=== PATIENT | female | born 1950 | race Caucasian/White ===

== ENCOUNTER 2020-12-11 08:01 | Outpatient (CLI) | payer MEDICARE, OTHER, SELFPAY ==
[2020-12-11 09:25] LABS: INR 0.9; Prothrombin Time 12.7 Seconds (11.1-14.7)
[2020-12-11 09:26] LABS: Partial Thromboplastin Time 29.2 SECONDS (22.3-36.8)
[2020-12-11 09:28] LABS: Anion Gap 6 mmol/L (8-16); Blood Urea Nitrogen 12 mg/dL (7-17); Calcium 9.6 mg/dL (8.4-10.2); Carbon Dioxide 30 mmol/L (22-30); Chloride 105 mmol/L (98-107); Estimated Glomerular Filt Rate > 60; Glucose 113 mg/dL (65-105); Potassium 3.9 mmol/L (3.4-5.0); Sodium 141 mmol/L (137-145)
== END 2020-12-11 08:02 | disposition home or self-care (01) ==
PROVIDERS: Anesthesiology; Urology; PCP Physician Assistant; Visit Provider Urology
DX: Z01.812 Encounter for preprocedural laboratory examination (principal); N20.0 Calculus of kidney; E11.9 Type 2 diabetes mellitus without complications
CPT/HCPCS: 36415; 80048; 85610; 85730; 87086

== ENCOUNTER → 2020-12-17 02:28 | Outpatient (CLI) | payer MEDICARE, OTHER, SELFPAY ==
[2020-12-17 22:46] LABS: SARS-CoV-2 RNA PCR Negative
== END ==
PROVIDERS: PCP Physician Assistant; Visit Provider Urology
DX: Z01.812 Encounter for preprocedural laboratory examination (principal); Z20.822 Contact with and (suspected) exposure to COVID-19
CPT/HCPCS: C9803; U0003; U0005

== ENCOUNTER 2020-12-20 01:34 | Day surgery (SDC) | payer MEDICARE, OTHER, SELFPAY ==
[2020-12-09 15:03] VITALS: BMI 24.4
--- NOTE | 2020-12-13 07:18 | P.HP_ITS ---
History of Present Illness History of Present Illness Consent: Risks, benefits, and alternatives have been discussed and questions answered. Patient agrees to proceed with procedure. Chief complaint: Right Renal Stones Narrative: Brad Charles is a 70 year old male with a remote history of urolithiasis who was referred by the emergency room at [facility] in July 2020. Imaging demonstrated a 14 mm right renal pelvic stone. We originally set to do lithotripsy around that time but he had to cancel due to family issues. He is aware of alternative therapeutic options including percutaneous nephrolithotomy and endoscopic approach to this stone. He is where the risk of ESWL including, but not limited to, injury to his kidney, perinephric bleeding, failure to completely treat the stone. Review of Systems Cardiovascular: Cardiovascular: Denies chest pain, Denies lightheadedness, Denies palpitations and Denies dyspnea Respiratory: Respiratory: Denies dyspnea Gastrointestinal: Gastrointestinal: Denies diarrhea, Denies nausea and Denies vomiting Genitourinary: Genitourinary: Denies hematuria and Denies dysuria Endocrine: Endocrine: Denies palpitations PMFSH Social History Social History Smoking status: Never smoker Second hand tobacco smoke exposure: No Alcohol intake: current Drinks per week: 2 Substance use: never Substance use type: does not use Spiritual care concerns: No Meds Home Medications and Allergies Home Medications Medication Instructions Recorded Confirmed Type aspirin [Aspirin Low Dose] 81 mg PO QAM 12/09/20 12/09/20 History atorvastatin 40 mg HS 12/09/20 12/09/20 History clopidogrel 75 mg DAILY 12/09/20 12/09/20 History dicyclomine 10 mg PRN PRN 12/09/20 12/09/20 History glimepiride 2 mg BID 12/09/20 12/09/20 History hydrocodone-acetaminophen 1 tablet PRN PRN 12/09/20 12/09/20 History isosorbide mononitrate 30 mg PO QAM 12/09/20 12/09/20 History metformin 1,000 mg QAM 12/09/20 12/09/20 History metoprolol tartrate 25 mg BID 12/09/20 12/09/20 History paroxetine HCl 10 mg PO EVERY OTHER DAY 12/09/20 12/09/20 History Allergies Allergy/AdvReac Type Severity Reaction Status Date / Time No Known Allergies Allergy Verified 12/09/20 14:56 Exam Const: General: no acute distress Resp: Effort & Inspection: normal respiratory effort GI: Inspection: non-distended GI Palp: No abdominal tenderness and No Guarding due to palpation present (GI) Auscultation: normal bowel sounds Assessment and Plan Assessment and plan (1) Right kidney stone: Code(s): N20.0 - Calculus of kidney Status: Acute Assessment and Plan: * cystoscopy with right stent placement, right ESWL
[2020-12-20] VITALS (8 sets, daily range): BP systolic 92–145; BP diastolic 56–89; PULSE 58–80; RESP 10–20; TEMP 36–36.3; O2SAT 99–100
--- NOTE | ~2020-12-20 | XR_ITS ---
EXAMINATION: XR abdomen/kub 1V INDICATION: Nephrolithiasis TECHNIQUE: Supine views of the abdomen were obtained on 2 radiographs. COMPARISON: None FINDINGS: A 1.6 cm stone projects in the right kidney. Small stones of the left kidney measure up to 3 mm. Vascular calcifications are noted in the pelvis. The bowel gas pattern is normal. Surgical clip s in the right upper quadrant are likely from prior cholecystectomy. There is mild osteoarthritis of the hips. IMPRESSION: 1. 1.6 cm right kidney stone. 2. Left nephrolithiasis. Reviewed, dictated and finalized at location A. [employer]
--- NOTE | 2020-12-20 06:31 | WPDHPUPDATE1 ---
History and Physical Update Update Date/Time: 12/20/20 06:31 History and Physical has been reviewed, including an updated exam of the patient. There are NO changes in the patient's condition. Risks, benefits, and alternatives have been discussed and questions answered. Patient agrees to proceed with procedure.
[2020-12-20] MEDS: LACTATED RINGERS 1,000 ML 30 ML IV CONT (06:45)
[2020-12-20 06:52] LABS: Glucose Point of Care 104 (65-105)
--- NOTE | 2020-12-20 07:13 | WPDANESEPPF ---
Anes - Initial Pre Proc Eval Procedure: Operation Date: 12/20/20 07:30 Proposed Procedures p Right Renal Extracorporeal Shock Wave Lithotripsy - Mic Menon MD s Cystoscopy With Right Stent Placement - Mic Menon MD Date/Time: 12/20/20 07:13 Surgeon: Mic Menon MD Pre Op Diagnosis: Right Renal Stones Patient Data Age: 70 Gender: F Height: 5 ft 10 in Weight: 74.9 kg Last Vital Signs Temp 36.0 C L 12/20/20 06:21 Pulse 58 L 12/20/20 06:21 Resp 20 12/20/20 06:21 BP 126/81 12/20/20 06:21 Pulse Ox 99 12/20/20 06:21 Allergies Allergy/AdvReac Type Severity Reaction Status Date / Time No Known Allergies Allergy Verified 12/20/20 07:03 Home Medications Medication Instructions Recorded Confirmed Type aspirin [Aspirin Low Dose] 81 mg PO QAM 12/09/20 12/20/20 History atorvastatin 40 mg HS 12/09/20 12/20/20 History clopidogrel 75 mg DAILY 12/09/20 12/20/20 History dicyclomine 10 mg PRN PRN 12/09/20 12/20/20 History glimepiride 2 mg BID 12/09/20 12/20/20 History hydrocodone-acetaminophen 1 tablet PRN PRN 12/09/20 12/20/20 History isosorbide mononitrate 30 mg PO QAM 12/09/20 12/20/20 History metformin 1,000 mg QAM 12/09/20 12/20/20 History metoprolol tartrate 25 mg BID 12/09/20 12/20/20 History paroxetine HCl 10 mg PO EVERY OTHER DAY 12/09/20 12/20/20 History Laboratory Tests 12/20/20 06:47 POC Capillary Glucose 104 mg/dl mg/dl (65-105) Patient hx anesthesia problems: none Family hx anesthesia problems: none PMFSH Past Medical History Medical History CAD (coronary artery disease) Diabetes Hyperlipidemia Hypertension Surgical History Surgical History Hx of CABG Stented coronary artery Social History Social History Smoking status: Never smoker Second hand tobacco smoke exposure: No Alcohol intake: current Drinks per week: 2 Substance use: never Substance use type: does not use Living arrangements: with family Spiritual care concerns: No Anes - Eval Final PreProcedure Day of Procedure 12/20/20 07:13 Patient weight: normal Heart: regular rate and rhythm Lungs: clear to auscultation Airway: Mallampati scale class II Neurological: alert and oriented Last oral intake: >/= 8 hours ASA classification: III Emergent: no Anesthetic plan: proceed Anesthesia type and monitoring: general LMA and standard monitoring Informed Consent: The patient's anesthetic plan and its attendant risks and benefits were discussed with the patient/family/POA. Questions were solicited and answers provided to the satisfaction of the patient/family/POA.
[2020-12-20] MEDS: ceFAZolin 2 GM/D5W 50 ML 2 GM/50 ML BAG IVPB (07:30)
--- NOTE | 2020-12-20 08:03 | PM.PROC ---
Procedure Note - Detailed Date of procedure: 12/20/20 Pre-op diagnosis: Right Renal Stones Post-op diagnosis: same Procedure performed: 1. Cystoscopy, right ureteral stent removal 2. Right ESWL Description of procedure: The patient was brought to the operative suite where he was placed in the supine position on the Dornier lithotripter table. Flexible cystoscopy was undertaken with a 16F flexible cystoscopy. There were no urethral strictures. The prostatic urethra estimated length was 2.0cm. There was mild obstruction of the prostatic urethra with no median lobe enlargement. The bladder mucosa was normal and there was a single, orthotopic ureteral orifice bilaterally. A 0.035 glidewire was advanced into the right renal pelvis under fluoroscopy. A 4.8F J-J ureteral stent was positioned with the proximal coil in the renal pelvis and the distal coil in the bladder. The patient was then repositioned in the supine position with the focal point of the lithotriptor on a 6-7mm left mid-ureteral calculus. A total of 2500 shocks were delivered at a power setting of 4. There appeared to be good fragmentation of the stone. The patient tolerated the procedure well and was taken to the recovery room in good condition. Anesthesia: GLMA Surgeon: Mic Menon MD Drains: No Packing: No Pathology: none sent Complications: No immediate complications Condition: stable Disposition: PACU
[2020-12-20] MEDS: ONDANSETRON INJ 4 MG/2 ML VIAL IV PUSH (09:07)
[2020-12-20 09:09] LABS: Glucose Point of Care 131 (65-105)
== END 2020-12-20 10:22 | disposition home or self-care (01) ==
PROVIDERS: PCP Physician Assistant; Visit Provider Urology
PROC: (CPT 50590; principal; 2020-12-20 07:30)
PROC: (CPT 52352; 2020-12-20 07:30)
DX: N20.0 Calculus of kidney (principal); I10 Essential (primary) hypertension; I25.10 Atherosclerotic heart disease of native coronary artery without angina pectoris; E11.9 Type 2 diabetes mellitus without complications; E78.5 Hyperlipidemia, unspecified; Z95.1 Presence of aortocoronary bypass graft; Z95.5 Presence of coronary angioplasty implant and graft; Z79.02 Long term (current) use of antithrombotics/antiplatelets; Z79.84 Long term (current) use of oral hypoglycemic drugs; Z79.82 Long term (current) use of aspirin
CPT/HCPCS: 50590; 52332; 74018; 82948; A9270; C1769; C1887; C2617; J0690; J2250; J2405; J2704; J7030; J7120

== ENCOUNTER 2021-01-03 12:46 | Outpatient (CLI) | payer MEDICARE, OTHER, SELFPAY ==
--- NOTE | ~2021-01-03 | XR_ITS ---
XR abdomen/kub 1V 01/03/2021 13:08 Indication: Kidney stones Procedure: KUB Comparison: 12/20/2020 Findings: Right internal ureteral stent present. There are left renal stones. There are calcification s adjacent to the distal aspect of the right stent, suspicious for ureteral stones. Bowel gas pattern nonobstructive. No acute osseous abnormality. Impression: 1: Left nephrolithiasis. 2: Possible distal right ureteral stones. Reviewed, dictated and finalized at location B. Impression: 1: Left nephrolithiasis. 2: Possible distal right ureteral stones.
== END 2021-01-03 12:47 | disposition home or self-care (01) ==
LOC: ANHIMG 12:50
PROVIDERS: PCP Physician Assistant; Visit Provider Urology
DX: N20.0 Calculus of kidney (principal)
CPT/HCPCS: 74018

== ENCOUNTER 2021-01-14 09:16 | Outpatient (CLI) | payer MEDICARE, OTHER, SELFPAY ==
--- NOTE | ~2021-01-14 | XR_ITS ---
EXAMINATION: XR abdomen/kub 1V EXAM DATE: 01/14/2021 09:36 INDICATION: Right-sided kidney stone, 2 weeks post lithotripsy. TECHNIQUE: Frontal projection of the upper abdomen, frontal projection lower abdomen/pelvis for inter pretation. Comparison is made to prior examination from 01/03/2021, 12/20/2020. FINDINGS: There is a right-sided double-J ureteral stent. There is 4 mm calcification along the dista l aspect of the stent which is suspected to be more likely arterial sclerosis than a ureteral stone, after reviewing the prior 2examinations. Several 3 mm calyceal stones. There are cholecystectomy clip s. Mild to moderate lumbar spondylosis and hip primary osteoarthritis. IMPRESSION: 1. Right stent in position. Can't exclude distal ureteral stone. 2. Small left nephrolithiasis. Reviewed, dictated and finalized at location A.
== END 2021-01-14 09:17 | disposition home or self-care (01) ==
LOC: ANHIMG 09:21
PROVIDERS: PCP Physician Assistant; Visit Provider Urology
DX: N20.0 Calculus of kidney (principal)
CPT/HCPCS: 74018

== ENCOUNTER 2022-05-28 10:43 | Outpatient (CLI) | payer MEDICARE, OTHER, SELFPAY ==
--- NOTE | ~2022-05-28 | CT_ITS ---
EXAMINATION: CT abdomen pelvis wo con DATE: 05/28/2022 11:12 INDICATION: Right flank pain and hematuria TECHNIQUE: Computed tomography (CT) of the abdomen and pelvis was performed without intravenous contr ast. The dose-length product (DLP) was 414.37 mGy-cm. Automated exposure control and iterative recons truction technique were employed. COMPARISON: None FINDINGS: There is a 4 mm nodule of the right lower lobe. The heart size is normal. The gallbladder i s surgically absent. The liver, spleen, pancreas, and adrenal glands are normal. There is a 6 mm ston e in the right mid ureter which causes mild hydroureteronephrosis. There are at least five nonobstruc ting stones of the right kidney which measure up to 2 mm. There are at least seven nonobstructing sto jeny of the left kidney which measure up to 6 mm. There is a 1.3 cm cyst of the right kidney. There is calcified atherosclerosis of the aorta and many of the other arteries. No pathologically enlarged ab dominal or pelvic lymph nodes are identified. There is no free intraperitoneal gas or evidence of bow el obstruction. There is moderate lumbar spondylosis. A fat-containing umbilical hernia is noted. IMPRESSION: 1. 6 mm stone in the right mid ureter causing mild hydroureteronephrosis. 2. Nonobstructing bilateral nephrolithiasis. 3. 4 mm nodule of the right lower lobe, likely old granulomatous disease. If the patient has no risk factors for malignancy, no further follow up is required. If there are risk factors for malignancy ( i.e., history of smoking, asbestos or radiation exposure), consider followup CT in 12 months. Reviewed, dictated and finalized at location A. IMPRESSION: 1. 6 mm stone in the right mid ureter causing mild hydroureteronephrosis. 2. Nonobstructing bilateral nephrolithiasis. 3. 4 mm nodule of the right lower lobe, likely old granulomatous disease. If th e patient has no risk factors for malignancy, no further follow up is required. If there are risk factors for malignancy (i.e., history of smoking, asbestos or radiation exposure), consider followup CT in 12 months.
--- NOTE | ~2022-05-28 | XR_ITS ---
EXAMINATION: XR abdomen/kub 1V INDICATION: Right flank pain TECHNIQUE: Supine view of the abdomen is obtained. COMPARISON: CT from today FINDINGS: Calcified atherosclerosis of the pelvis obscures visualization of the known right ureteral stone. Bilateral nephrolithiasis is noted. The bowel gas pattern is normal. There is mild osteoarthri tis of the hips. Moderate lumbar spondylosis is noted. IMPRESSION: 1. Calcified atherosclerosis obscuring visualization of the known right ureteral stone. 2. Bilateral nephrolithiasis. Reviewed, dictated and finalized at location A. IMPRESSION: 1. Calcified atherosclerosis obscuring visualization of the known right uretera l stone. 2. Bilateral nephrolithiasis.
== END 2022-05-28 10:44 | disposition home or self-care (01) ==
PROVIDERS: PCP Physician Assistant; Visit Provider Nurse Practitioner Adult Health
DX: R91.8 Other nonspecific abnormal finding of lung field (principal); N20.2 Calculus of kidney with calculus of ureter
CPT/HCPCS: 74018; 74176